=== PATIENT | female | born 1940 | race Caucasian/White ===

== ENCOUNTER 2016-11-25 10:07 | Day surgery (SDC) | payer MEDICARE, OTHER ==
[2016-11-25] MEDS ORDERED: Gatifloxacin 0.5% Ophth Soln 2.5 ML Bot EYELF SCH (10:15)
[2016-11-25] MEDS ORDERED: Sodium Chloride 0.9% 5 ML Syringe FLUSH PRN (10:15)
[2016-11-25] MEDS ORDERED: Lactated Ringers 1,000 ML IV SCH (10:15)
[2016-11-25] MEDS: Phenylephrine 10% Ophth Soln 5 ML Bot EYELF SCH ×3 (10:42→11:12)
[2016-11-25] MEDS: Cyclopentolate 1% Opth Soln 2 ML Bottle EYELF SCH ×3 (10:52→11:22)
[2016-11-25] MEDS ORDERED: Water For Irrigation,Sterile 1,500 ML Container ONE (12:50)
[2016-11-25] MEDS ORDERED: Balanced Salt Solution Ophth Irrig 15 ML Bottle EYELF ONE (12:50)
[2016-11-25] MEDS ORDERED: Balanced Salt Solution Plus Ophth Irrig 500 ML Bottle IOCULAR ONE (12:50)
[2016-11-25] MEDS ORDERED: Tetracaine 0.5% 2 ML Bottle EYEBOTH ONE (12:51)
[2016-11-25] MEDS ORDERED: Dexamethasone/Neomycin/Polymyxin B Ophth Oint 3.5 GM Tube EYELF ONE (12:51)
[2016-11-25] MEDS ORDERED: Carbachol 0.01% Intraocular 1.5 ML Vial EYELF ONE (12:51)
[2016-11-25] MEDS ORDERED: Lidocaine 2% with EPINEPHrine 1:100,000 20 ML MDV INJECT ONE (12:51)
[2016-11-25] MEDS ORDERED: EPINEPHrine 1:1000 1 MG/ML SDV ONE (12:51)
[2016-11-25] MEDS ORDERED: Lidocaine 1% 10 ML MDV INJECT ONE (12:52)
[2016-11-25] MEDS ORDERED: Hyaluronate Sodium 1% 0.85 ML Syringe IOCULAR ONE (12:52)
[2016-11-25 13:12] VITALS: BP 151/83
--- NOTE | 2016-11-26 08:10 | PROC ---
DATE OF PROCEDURE: PHYSICIAN: Jomar Stiles MD PRE-PROCEDURE DIAGNOSIS: Cataract, left eye. POST-PROCEDURE DIAGNOSIS: Cataract, left eye. PROCEDURE PERFORMED: Phacoemulsification with posterior chamber lens insertion, left eye. FINDINGS: The patient was taken to the operating room where appropriate anesthesia, sedation and monitoring were provided. A retrobulbar block was given on the left side. The eye was massaged and was found to be appropriately soft. The eye and eyelids were then prepped and draped in the usual sterile manner. A lid speculum was placed. A micro sharp blade was used to enter the anterior chamber inside the limbus inferior-temporally. Xylocaine was irrigated into the eye at this site. Healon was irrigated into the eye through this site. Then using a 2.85 mm corneal blade an entry was made into the anterior chamber just inside the limbus temporally. Healon was again irrigated into the eye. Then using a cystitome, the anterior capsulorrhexis was created. The lens nucleus was hydrodissected using a 27 gauge cannula and balanced salt solution. The phacoemulsification unit was introduced through the temporal site and the Rayo spatula through the inferior temporal site. In so doing, the lens nucleus was phacoemulsified. The cortical fragments of the lens were removed using the irrigation aspiration unit. The posterior capsule was polished. Healon was irrigated into the eye. The posterior chamber lens was inserted and rotated into position inside the capsular bag. The Healon was irrigated out of the eye. Miostat was irrigated into the eye and the pupil rounded nicely. A single interrupted 10-0 Nylon suture was placed through the temporal corneal incision site. Balanced salt solution was irrigated into the eye. The wound was tested and found to be tight. Maxitrol ointment was placed into the patient's left eye. The eyelids were closed and an eye patch and carrion shield were placed. The patient left the operating room in good condition. /[id number]/[id number]
== END 2016-11-25 13:30 | disposition home or self-care (01) ==
LOC: KA.SDS 10:07
PROVIDERS: ATTEND Ophthalmology
DX: H26.9 Unspecified cataract (principal); E78.2 Mixed hyperlipidemia; I10 Essential (primary) hypertension; E66.9 Obesity, unspecified; Z79.899 Other long term (current) drug therapy
CPT/HCPCS: 66984; A9270; C1780; J0171; J7120; 00142

== ENCOUNTER 2016-12-23 08:03 | Day surgery (SDC) | payer MEDICARE, OTHER ==
[2016-12-23] MEDS ORDERED: Lactated Ringers 1,000 ML IV SCH (08:15)
[2016-12-23] MEDS ORDERED: Gatifloxacin 0.5% Ophth Soln 2.5 ML Bot EYERT SCH (08:15)
[2016-12-23] MEDS ORDERED: Sodium Chloride 0.9% 5 ML Syringe FLUSH PRN (08:15)
[2016-12-23] MEDS: Cyclopentolate 1% Opth Soln 2 ML Bottle EYERT SCH ×3 (08:40→09:11)
[2016-12-23] MEDS: Phenylephrine 10% Ophth Soln 5 ML Bot EYERT SCH ×3 (08:50→09:22)
[2016-12-23] MEDS ORDERED: Midazolam 1 MG/ML 2 ML SDV ONE (09:22)
[2016-12-23] MEDS ORDERED: Midazolam 1 MG/ML 2 ML SDV IV ONE (10:15)
[2016-12-23] MEDS ORDERED: Balanced Salt Solution Ophth Irrig 15 ML Bottle EYERT ONE (10:38)
[2016-12-23] MEDS ORDERED: Balanced Salt Solution Plus Ophth Irrig 500 ML Bottle IOCULAR ONE (10:38)
[2016-12-23] MEDS ORDERED: Water For Irrigation,Sterile 1,500 ML Container IRR ONE (10:38)
[2016-12-23] MEDS ORDERED: Carbachol 0.01% Intraocular 1.5 ML Vial EYERT ONE (10:39)
[2016-12-23] MEDS ORDERED: Tetracaine 0.5% 2 ML Bottle EYEBOTH ONE (10:39)
[2016-12-23] MEDS ORDERED: EPINEPHrine 1:1000 1 MG/ML SDV ONE (10:39)
[2016-12-23] MEDS ORDERED: Dexamethasone/Neomycin/Polymyxin B Ophth Oint 3.5 GM Tube EYERT ONE (10:40)
[2016-12-23] MEDS ORDERED: Lidocaine 1% 10 ML MDV INJECT ONE (10:40)
[2016-12-23] MEDS ORDERED: Lidocaine 2% with EPINEPHrine 1:100,000 20 ML MDV INJECT ONE (10:40)
[2016-12-23] MEDS ORDERED: Hyaluronate Sodium 1% 0.85 ML Syringe IOCULAR ONE (10:41)
[2016-12-23 11:25] VITALS: BP 139/78
== END 2016-12-23 11:28 | disposition home or self-care (01) ==
LOC: KA.SDS 08:03
PROVIDERS: ATTEND Ophthalmology
DX: H26.9 Unspecified cataract (principal); I10 Essential (primary) hypertension; E78.2 Mixed hyperlipidemia; E66.01 Morbid (severe) obesity due to excess calories; Q60.0 Renal agenesis, unilateral; Z98.42 Cataract extraction status, left eye; Z79.899 Other long term (current) drug therapy
CPT/HCPCS: 00142; 66984; A9270; C1780; J0171; J2250; J7120

== ENCOUNTER 2024-12-20 07:48 | Observation (INO) | payer MEDICARE ==
[2024-12-20] MEDS ORDERED: Sodium Chloride 0.9% 10 ML Syringe FLUSH PRN (08:09)
[2024-12-20 08:36] LABS: BASOPHILS ABSOLUTE AUTO 0.03 10^3/uL (0.00-0.10); BASOPHILS PERCENT AUTO 0.4 % (0.0-1.0); EOSINOPHILS ABSOLUTE AUTO 0.04 10^3/uL (0.10-0.30); EOSINOPHILS PERCENT AUTO 0.5 % (1.0-3.0); HEMATOCRIT 33.6 % (37.0-47.0); HEMOGLOBIN 10.6 g/dL (12.0-16.0); IMMATURE GRAN ABSOLUTE AUTO 0.01 10^3/uL (0.00-0.04); IMMATURE GRAN PERCENT AUTO 0.1 % (0.0-0.4); LYMPHOCYTES ABSOLUTE AUTO 1.01 10^3/uL (1.00-4.00); LYMPHOCYTES PERCENT AUTO 12.5 % (20.0-40.0); MEAN CORPUSCULAR HEMOGLOBIN 27.2 pg (27.0-31.0); MEAN CORPUSCULAR HGB CONC 31.5 g/dL (32.0-36.0); MEAN CORPUSCULAR VOLUME 86.4 fL (82.0-92.0); MEAN PLATELET VOLUME 10.9 fL (7.4-10.4); MONOCYTES ABSOLUTE AUTO 1.09 10^3/uL (0.10-0.80); MONOCYTES PERCENT AUTO 13.5 % (2.0-8.0); NEUTROPHILS ABSOLUTE AUTO 5.89 10^3/uL (2.50-7.00); PLATELET COUNT,PLT 246 10^3/uL (150-400); RED BLOOD CELL COUNT 3.89 10^6/uL (3.80-5.50); RED CELL DISTRIBUTION WIDTH 17.5 % (11.5-14.5); WHITE BLOOD CELL COUNT,WBC 8.07 10^3/uL (5.00-10.00)
[2024-12-20] MEDS: Albuterol/Ipratropium 3.0-0.5 MG/3 ML Neb Soln NEB ONE (08:56)
[2024-12-20 08:57] LABS: ALBUMIN 3.3 g/dL (3.40-5.00); ANION GAP 12.4 mmol/L (5-15); BILIRUBIN TOTAL 0.6 mg/dL (0.2-1.0); CALCIUM 9.1 mg/dL (8.7-10.3); CARBON DIOXIDE,CO2 27.9 mmol/L (21.0-32.0); CREATININE 0.94 mg/dL (0.51-1.17); EST CRCL DRUG DOSING (CG) 37.51 mL/min; POTASSIUM,K 4.3 mmol/L (3.5-5.1); PROTEIN TOTAL,TP 7.2 g/dL (6.4-8.2)
[2024-12-20 09:10] LABS: PROTHROMBIN TIME 10.2 SEC (9.1-12.0)
[2024-12-20] MEDS: Furosemide 40 MG/4 ML VIAL IVPUSH ONE (09:20)
[2024-12-20] MEDS ORDERED: Ondansetron 4 MG Tab.DIS PO PRN (10:34)
[2024-12-20] MEDS ORDERED: Ondansetron 4 MG/2 ML SDV IV PRN (10:34)
[2024-12-20] MEDS ORDERED: Acetaminophen 325 MG Tab PO PRN (10:34)
[2024-12-20] MEDS ORDERED: Acetaminophen/oxyCODONE 325-5 MG Tab PO PRN (10:34)
[2024-12-20] MEDS ORDERED: Melatonin 3 MG Tab PO PRN (10:34)
[2024-12-20] MEDS ORDERED: Glucagon,Human Recombinant 1 MG Vial IM PRN (10:52)
[2024-12-20] MEDS ORDERED: Glucose Gel 15 GM in 37.5 GM Tube PO PRN (10:52)
[2024-12-20] MEDS ORDERED: 50% Dextrose in Water 50 ML Syringe IVPUSH PRN (10:52)
[2024-12-20] MEDS: Insulin Lispro 100 Unit/ML 3 ML KwikPen SUBCUT SCH (11:48)
[2024-12-20] MEDS: Furosemide 40 MG/4 ML VIAL IVPUSH SCH (14:24)
[2024-12-20] MEDS: Aspirin 325 MG Tab.EC PO SCH (14:24)
[2024-12-20] MEDS: metFORMIN 500 MG Tab PO SCH (18:12)
[2024-12-20] MEDS: Pregabalin 25 MG Cap PO SCH (20:03)
[2024-12-21 08:00] LABS: ANION GAP 14.9 mmol/L (5-15); CALCIUM 9.3 mg/dL (8.7-10.3); CARBON DIOXIDE,CO2 30.9 mmol/L (21.0-32.0); CREATININE 1.26 mg/dL (0.51-1.17); EST CRCL DRUG DOSING (CG) 27.97 mL/min; POTASSIUM,K 3.8 mmol/L (3.5-5.1)
[2024-12-21] MEDS: Fish Oil/Omega-3 Fatty Acids 1 Gm Cap PO SCH (09:17)
[2024-12-21] MEDS: amLODIPine 5 MG Tab PO SCH (09:18)
[2024-12-21 10:40] VITALS: BP 140/63; PULSE 77
== END 2024-12-21 11:23 | disposition home or self-care (01) ==
LOC: KA.ED 07:48 → KA.MS 10:03
PROVIDERS: ADMIT Family Medicine; ATTEND Family Medicine
DX: J96.01 Acute respiratory failure with hypoxia (principal); I13.0 Hypertensive heart and chronic kidney disease with heart failure and stage 1 through stage 4 chronic kidney disease, or unspecified chronic kidney disease; I50.33 Acute on chronic diastolic (congestive) heart failure; E11.22 Type 2 diabetes mellitus with diabetic chronic kidney disease; N18.32 Chronic kidney disease, stage 3b; M15.0 Primary generalized (osteo)arthritis; E11.69 Type 2 diabetes mellitus with other specified complication; E78.5 Hyperlipidemia, unspecified; E66.9 Obesity, unspecified; Z79.84 Long term (current) use of oral hypoglycemic drugs; Z79.899 Other long term (current) drug therapy
CPT/HCPCS: 36415; 71046; 80048; 80053; 82947; 83880; 84484; 85025; 85379; 85610; 85730; 93005; 93010; 94640; 96374; 96376; 99223-GT; 99239-GT; 99284; 99285-25; A9270-GY; G0378; J1938; Q3014

== ENCOUNTER 2025-06-07 13:50 | Inpatient (IN) | payer MEDICARE, OTHER ==
[2025-06-07 14:26] LABS: BASOPHILS ABSOLUTE AUTO 0.03 10^3/uL (0.00-0.10); BASOPHILS PERCENT AUTO 0.5 % (0.0-1.0); EOSINOPHILS ABSOLUTE AUTO 0.07 10^3/uL (0.10-0.30); EOSINOPHILS PERCENT AUTO 1.2 % (1.0-3.0); IMMATURE GRAN ABSOLUTE AUTO 0.01 10^3/uL (0.00-0.04); IMMATURE GRAN PERCENT AUTO 0.2 % (0.0-0.4); LYMPHOCYTES ABSOLUTE AUTO 1.08 10^3/uL (1.00-4.00); LYMPHOCYTES PERCENT AUTO 19.0 % (20.0-40.0); MEAN PLATELET VOLUME 10.0 fL (7.4-10.4); MONOCYTES ABSOLUTE AUTO 0.59 10^3/uL (0.10-0.80); MONOCYTES PERCENT AUTO 10.4 % (2.0-8.0); NEUTROPHILS ABSOLUTE AUTO 3.90 10^3/uL (2.50-7.00); NEUTROPHILS PERCENT AUTO 68.7 % (50.0-70.0); PLATELET COUNT,PLT 287 10^3/uL (150-400); RED BLOOD CELL COUNT 3.36 10^6/uL (3.80-5.50); RED CELL DISTRIBUTION WIDTH 17.9 % (11.5-14.5); WHITE BLOOD CELL COUNT,WBC 5.68 10^3/uL (5.00-10.00)
[2025-06-07 14:40] LABS: ALANINE AMINOTRANSFERASE,ALT 39.0 U/L (14-63); ASPARTATE AMNIOTRANSFERASE,AST 20.0 U/L (15-37); B-TYPE NATRIURETIC PEPTIDE,BNP 367.0 pg/mL (0-100); BILIRUBIN TOTAL 0.4 mg/dL (0.2-1.0); BLOOD UREA NITROGEN,BUN 28.0 mg/dL (7-18); CARBON DIOXIDE,CO2 25.0 mmol/L (21.0-32.0); CHLORIDE,CL 104.0 mmol/L (98-107); CREATININE 1.35 mg/dL (0.51-1.17); EST CRCL DRUG DOSING (CG) 25.66 mL/min; ESTIMATED GFR 39.0 mL/min (>=60); GLUCOSE RANDOM 112.0 mg/dL (70-140); POTASSIUM,K 4.7 mmol/L (3.5-5.1); PROTEIN TOTAL,TP 6.9 g/dL (6.4-8.2); SODIUM,NA 140.0 mmol/L (136-145)
[2025-06-07] MEDS: Furosemide 40 MG/4 ML VIAL IVPUSH ONE (15:06)
[2025-06-07] MEDS: Sodium Chloride 0.9% 10 ML Syringe FLUSH PRN (15:07)
[2025-06-08 07:43] LABS: BLOOD UREA NITROGEN,BUN 27.0 mg/dL (7-18); CARBON DIOXIDE,CO2 27.8 mmol/L (21.0-32.0); CHLORIDE,CL 103.0 mmol/L (98-107); CREATININE 1.24 mg/dL (0.51-1.17); EST CRCL DRUG DOSING (CG) 27.94 mL/min; GLUCOSE RANDOM 94.0 mg/dL (70-140); POTASSIUM,K 4.4 mmol/L (3.5-5.1); SODIUM,NA 140.0 mmol/L (136-145)
[2025-06-08 07:48] LABS: ESTIMATED GFR 43.0 mL/min (>=60)
[2025-06-08] MEDS: Furosemide 40 MG/4 ML VIAL IVPUSH SCH (08:53)
[2025-06-08 08:54] VITALS: BP 116/67; PULSE 85
== END 2025-06-08 11:10 | disposition home or self-care (01) | DRG 291 ==
LOC: KA.ED 13:55 → KA.MS 15:20
PROVIDERS: ADMIT Family Medicine; ATTEND Family Medicine
DX: I13.0 Hypertensive heart and chronic kidney disease with heart failure and stage 1 through stage 4 chronic kidney disease, or unspecified chronic kidney disease (principal); I50.33 Acute on chronic diastolic (congestive) heart failure; I50.9 Heart failure, unspecified; N18.9 Chronic kidney disease, unspecified; J96.01 Acute respiratory failure with hypoxia; I48.19 Other persistent atrial fibrillation; D64.9 Anemia, unspecified; N18.32 Chronic kidney disease, stage 3b; E11.22 Type 2 diabetes mellitus with diabetic chronic kidney disease; I27.20 Pulmonary hypertension, unspecified; E78.00 Pure hypercholesterolemia, unspecified; M19.90 Unspecified osteoarthritis, unspecified site; H54.7 Unspecified visual loss; E66.9 Obesity, unspecified; Z68.37 Body mass index [BMI] 37.0-37.9, adult; Z96.659 Presence of unspecified artificial knee joint; Z68.35 Body mass index [BMI] 35.0-35.9, adult; Z90.49 Acquired absence of other specified parts of digestive tract; Z90.710 Acquired absence of both cervix and uterus; Z98.890 Other specified postprocedural states; Z79.82 Long term (current) use of aspirin; Z99.81 Dependence on supplemental oxygen; Z88.0 Allergy status to penicillin; Z79.899 Other long term (current) drug therapy; Z79.84 Long term (current) use of oral hypoglycemic drugs; Z98.49 Cataract extraction status, unspecified eye
CPT/HCPCS: 36415; 71045; 80048; 80053; 83735; 83880; 84484; 85025; 93010; 96374; 99223-GT; 99239-GT; 99284; 99285-25; A9270-GY; J1938; Q3014

== ENCOUNTER 2025-07-10 11:23 | Emergency (ER) | payer MEDICARE, OTHER ==
[2025-07-10] MEDS ORDERED: Sodium Chloride 0.9% 10 ML Syringe FLUSH PRN (11:50)
[2025-07-10 11:58] VITALS: PULSE 101
[2025-07-10 12:16] LABS: BASOPHILS ABSOLUTE AUTO 0.05 10^3/uL (0.00-0.10); BASOPHILS PERCENT AUTO 0.8 % (0.0-1.0); EOSINOPHILS ABSOLUTE AUTO 0.04 10^3/uL (0.10-0.30); EOSINOPHILS PERCENT AUTO 0.6 % (1.0-3.0); IMMATURE GRAN ABSOLUTE AUTO 0.03 10^3/uL (0.00-0.04); IMMATURE GRAN PERCENT AUTO 0.5 % (0.0-0.4); LYMPHOCYTES ABSOLUTE AUTO 1.19 10^3/uL (1.00-4.00); LYMPHOCYTES PERCENT AUTO 19.3 % (20.0-40.0); MEAN PLATELET VOLUME 10.9 fL (7.4-10.4); MONOCYTES ABSOLUTE AUTO 0.58 10^3/uL (0.10-0.80); MONOCYTES PERCENT AUTO 9.4 % (2.0-8.0); NEUTROPHILS ABSOLUTE AUTO 4.27 10^3/uL (2.50-7.00); NEUTROPHILS PERCENT AUTO 69.4 % (50.0-70.0); PLATELET COUNT,PLT 321 10^3/uL (150-400); RED BLOOD CELL COUNT 2.69 10^6/uL (3.80-5.50); RED CELL DISTRIBUTION WIDTH 20.5 % (11.5-14.5); WHITE BLOOD CELL COUNT,WBC 6.16 10^3/uL (5.00-10.00)
[2025-07-10 13:02] LABS: ALANINE AMINOTRANSFERASE,ALT 16.0 U/L (14-63); ASPARTATE AMNIOTRANSFERASE,AST 13.0 U/L (15-37); BILIRUBIN TOTAL 0.5 mg/dL (0.2-1.0); CARBON DIOXIDE,CO2 27.0 mmol/L (21.0-32.0); CHLORIDE,CL 102.0 mmol/L (98-107); CREATININE 1.47 mg/dL (0.51-1.17); EST CRCL DRUG DOSING (CG) 23.05 mL/min; GLUCOSE RANDOM 119.0 mg/dL (70-140); POTASSIUM,K 3.8 mmol/L (3.5-5.1); PROTEIN TOTAL,TP 7.0 g/dL (6.4-8.2); SODIUM,NA 141.0 mmol/L (136-145)
[2025-07-10 13:04] LABS: BLOOD UREA NITROGEN,BUN 52.0 mg/dL (7-18); ESTIMATED GFR 35.0 mL/min (>=60)
[2025-07-10 15:06] VITALS: BP 113/54
== END 2025-07-10 14:20 ==
LOC: KA.ED 11:23
DX: N17.9 Acute kidney failure, unspecified (principal); K92.1 Melena; D64.9 Anemia, unspecified; I12.9 Hypertensive chronic kidney disease with stage 1 through stage 4 chronic kidney disease, or unspecified chronic kidney disease; N18.32 Chronic kidney disease, stage 3b; E66.9 Obesity, unspecified; Z68.35 Body mass index [BMI] 35.0-35.9, adult; Z90.49 Acquired absence of other specified parts of digestive tract; Z90.710 Acquired absence of both cervix and uterus; Z88.0 Allergy status to penicillin; Z79.01 Long term (current) use of anticoagulants; Z79.899 Other long term (current) drug therapy
CPT/HCPCS: 36415; 80053; 82272; 85025; 93010; 96361; 96374; 99284; 99285-25; J2470; J7030